=== PATIENT | female | born 1955 | race Caucasian/White ===

== ENCOUNTER 2021-06-11 08:27 | Outpatient (CLI) | payer OTHER, SELFPAY ==
[2021-06-11 08:46] VITALS: BMI 31.6
[2021-06-11 08:50] VITALS: BP 120/77; PULSE 83; RESP 17; TEMP 36.8; O2SAT 91
[2021-06-11 10:00] VITALS: BP 125/77; PULSE 86; RESP 16; TEMP 36.8; O2SAT 92
[2021-06-11 10:59] VITALS: BP 130/83; PULSE 78; RESP 17; TEMP 36.8
== END 2021-06-11 08:28 | disposition home or self-care (01) ==
LOC: OPS 08:29
PROVIDERS: PCP Nurse Practitioner Family; Visit Provider Nurse Practitioner Family
DX: U07.1 COVID-19 (principal)
CPT/HCPCS: 96365

== ENCOUNTER 2025-03-14 20:21 | Emergency (ER) | payer MEDICARE, SELFPAY ==
--- NOTE | 2025-03-14 20:23 | ECG_ITS ---
[facility] 2025-[facility]14 Pat Name: Caridad Card Department: Room: Gender: Female Continuity Manager: : 1955 Requested By: Rachel Hunter Order Number: [id number] Cristal MD: Ashly Mclain M.D. Measurements Intervals [place] Rate: 122 P: 65 SD: 178 QRS: -28 QRSD: 84 T: 69 QT: 416 QTc: 594 Interpretive Statements SINUS TACHYCARDIA LOW QRS VOLTAGE [QRS DEFLECTION < 0.5/1.0 mV IN LIMB/CHEST LEADS] ANTEROSEPTAL MYOCARDIAL INFARCTION , OF INDETERMINATE AGE [40+ ms Q WAVE IN V1-V4] Compared to ECG 12/12/2014 06:00:38 Low QRS voltage now present ST (T wave) deviation no longer present Myocardial infarct finding still present Electronically Signed On 03-15-2025 13:49:35 CDT by Ashly Mclain M.D. [id number]
--- NOTE | 2025-03-14 20:23 | XRR_ITS ---
PROCEDURE INFORMATION: Exam: XR Chest Exam date and time: 03/14/2025 8:39 PM Age: 70 years old Clinical indication: Pain; Chest pressure; Additional info: Chest pain TECHNIQUE: Imaging protocol: Radiologic exam of the chest. Views: 1 view. COMPARISON: No relevant prior studies available. FINDINGS: Lungs: Left basilar airspace o opacity obscures the hemidiaphragm and left costophrenic angle. Central predominant interstitial opacification is present. Pleural spaces: See Lungs finding. Heart/Mediastinum: The heart is normal in size. Mediastinal contours are within normal limits. Vasculature: Atherosclerotic changes of the aorta are noted. Bones/joints: Chronic appearing right distal clavicle fracture deformity. Correlate with patient history/physical exam. XR/XR chest 1V portable [id number] IMPRESSION: Left basilar airspace opacification which may represent airspace disease or atelectasis secondary to a small left pleural effusion. Question of mild vascular congestion.
--- OUTSIDE RECORDS SUMMARY | 2025-03-14 20:25 | XMS_ITS | Encounter Summary ---
Author Organization [facility] Address [address] [place] [address] Care Team Providers Care Plant Chief Name Role Phone Candace Buitrago MD Primary Care Provider [phone] Encounter Details Date Type Department Care Team (Late st Contact Info) Description 04/05/2007 Outpatient Historical [facility] [address] [facility] [address] [place] [address] Aline Iniguez MD NO ADDRESS ON FILE Other Screening Mammogram (Primary Dx) Social History Tobacco Use Types Packs/Day Years Used Date Smoking Tobacco: Never Assessed Comments Unknown Sex and Gender Information Value Date Recorded Sex Assigned at Not on file 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
--- OUTSIDE RECORDS SUMMARY | 2025-03-14 20:25 | XMS_ITS | Encounter Summary ---
Author Organization [facility] Address [address] [place] [address] Care Team Providers Care Salesperson Books Name Role Phone Candace Buitrago MD Primary Care Provider [phone] Encounter Details Date Type Department Care Team (Latest Contact Info) Description 04/05/2007 Outpatient [facility] Breast Center [facility] [address] [place], [place] [address] Candace Buitrago MD [address] [place] [address] Other Screening Mammogram (Primary Dx) Social History Tobacco Use Types Packs/Day Years Used Date Smoking Tobacco: Never Assessed Comments Unknown Sex and Gender Information Value Date Recorded Sex Assigned at Not on file 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
--- OUTSIDE RECORDS SUMMARY | 2025-03-14 20:25 | XMS_ITS | Encounter Summary ---
Author Organization [facility] Address [address] [place] [address] Care Team Providers Care Cutter Aluminum Sheet Name Role Phone Candace Buitrago MD Primary Care Provider [phone] Encounter Details Date Type Department Care Team (Late st Contact Info) Description 06/18/2005 Outpatient Historical [facility] [address] [facility] [address] [place] [address] Aline Iniguez MD NO ADDRESS ON FILE SYMPTOMS IN BREAST NEC (Primary Dx) Social History Tobacco Use Types Packs/Day Years Used Date Smoking Tobacco: Never Assessed Comments Unknown Sex and Gender Information Value Date Recorded Sex Assigned at Not on file Legal Sex Female 6:33 AM RN ADMIT Gender Identity Not on file Sexual Orientation Not on file documented as of this encounter Plan of Treatment Not on file documented as of this encounter Visit Diagnoses Diagnosis Other sign and symptom in breast- Primary documented in this encounter Care Teams Cutter Aluminum Sheet Relationship Specialty Start Date End Date Candace Buitrago MD [address] [place] [address] PCP - General 04/27/06 documented as of this encounter
--- OUTSIDE RECORDS SUMMARY | 2025-03-14 20:25 | XMS_ITS | Encounter Summary ---
Author Organization [facility] Address [address] [place] [address] Care Team Providers Care Hand Finisher Name Role Phone Candace Buitrago MD Primary Care Provider [phone] Encounter Details Date Type Department Care Team (Late st Contact Info) Description 04/16/2005 Outpatient Historical [facility] Jackie James, DIRECTOR OF RADIOLOGY- [address] [place] [id number] Social History Tobacco Use Types Packs/Day Years Used Date Smoking Tobacco: Never Assessed Comments Unknown Sex and Gender Information Value Date Recorded Sex Assigned at Not on file 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
--- OUTSIDE RECORDS SUMMARY | 2025-03-14 20:25 | XMS_ITS | Encounter Summary ---
Author Organization [facility] Address [address] [place] [address] Care Team Providers Care Excel Expert Name Role Phone Candace Buitrago MD Primary Care Provider [phone] Encounter Details Date Type Department Care Team (Latest Contact Info) Description 04/17/2005 Outpatient [facility] Breast Center [facility] [address] [place], [place] [address] Candace Buitrago MD [address] [place] [id number] SCREENING MAMM-MAILG NEOPL NEC (Primary Dx) Social History Tobacco Use Types Packs/Day Years Used Date Smoking Tobacco: Never Assessed Comments Unknown Sex and Gender Information Value Date Recorded Sex Assigned at Not on file Legal Sex Female 6:33 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
--- OUTSIDE RECORDS SUMMARY | 2025-03-14 20:25 | XMS_ITS | Encounter Summary ---
Author Organization [facility] Address [address] [place] [address] Care Team Providers Care Shrub Planter Name Role Phone Candace Buitrago MD Primary Care Provider [phone] Encounter Details Date Type Department Care Team (Latest Contact Info) Description 11/23/2002 Outpatient [facility] Breast Center [facility] [address] [place], [place] [id number] Claudio Carlson MD NO ADDRESS ON FILE SCREENING MAMM-MALIG NEOPL-HI RISK (Primary Dx) Social History Tobacco Use Types Packs/Day Years Used Date Smoking Tobacco: Never Assessed Comments Unknown Sex and Gender Information Value Date Recorded Sex Assigned at Not on file 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
--- OUTSIDE RECORDS SUMMARY | 2025-03-14 20:25 | XMS_ITS | Encounter Summary ---
Author Organization [facility] Address [address] [place] [address] Care Team Providers Care Mosaicist Name Role Phone Candace Buitrago MD Primary Care Provider [phone] Encounter Details Date Type Department Care Team (Latest Contact Info) Description 04/09/2007 Outpatient Historical 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 Gender Identity Not on file Sexual Orientation Not on file documented as of this encounter Plan of Treatment Not on file documented as of this encounter Procedures Procedure Name Priority Date/Time Associated Diagnosis Comments XR DEXA BONE DENSITY AXIAL 1 OR MORE SITES Routine 04/09/2007 12:01 AM CDT documented in this encounter Results * XR DEXA BONE DENSITY AXIAL 1 OR MORE SITES (04/09/2007 12:01 AM CDT) Anatomical Region Laterality Modality Other 04/09/2007 12:0 1 AM CDT Narrative 04/09/2007 12:01 AM CDT 04/09/2007 Reason for Consultation: Surgical menopause on hormonal replacement therapy. She had a prior normal examination performed on 11/23/2002. Follow-up evaluation. Evaluate bone mineral density. DEXA EVALUATION OF THE LUMBAR SPINE AND RIGHT PROXIMAL FEMUR: BMD Young Adult Region g/cm2 % T L2-L4 1.244 104 0.4 L1-L4 1.213 103 0.3 Femoral neck 0.833 80 -1.5 Total hip 0.933 93 -0.6 The technical quality of this examination is good. Serial measurement #2. Evaluation of the lumbar spine again reveals normal bone mineral density and no evidence of significant segmental demineralization. The right proximal femur does show evidence of some progressive demineralization in the femoral neck. The neck has 20% less mineral than the mean projected for a young normal, age 20-40 with a T-score of -1.5 and a Z-score of -0.7. The other segments in the femur are normal. IMPRESSION: The bone mineral density of the lumbar spine remains within normal limits and shows no evidence of osteopenia or osteoporosis. The slight relative increase in absolute density is probably related to the development of some hypertrophic disease in the upper lumbar spine. 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 On the previous examination of 11/23/2002, the femoral neck showed evidence of mild involutional osteopenia with a T-score of -1.2. At the present time, she still does not have a significant increase in risk for a fragility fracture. Recommend conservative management and a follow-up examination in two years. cgf: Dictated By: Marco Marvin M.D. Electronically Signed By: Marco Marvin M.D. Date Signed: 04/11/07 Procedure Note 05/20/2009 04/09/2007 Reason for Consultation: Surgical menopause on hormonal replacement therapy. She had a priornormal examination performed on 11/23/2002. Follow-up evaluation. Evaluate bone mineral density. DEXA EVALUATION OF THE LUMBAR SPINE AND RIGHT PROXIMAL FEMUR: BMD Young Adult Region g/cm2 % T L2-L4 1.244 104 0.4 L1-L4 1.213 103 0.3 Femoral neck 0.833 80 -1.5Total hip 0.933 93 -0.6 The technical quality of this examination is good. Serial measurement #2. Evaluation of the lumbar spine again reveals normal bone mineral densityand no evidence of significant segmental demineralization. The right proximal femur does show evidenceof some progressive demineralization in the femoral neck. The neck has 20% less mineral thanthe mean projected for a young normal, age 20-40 with a T-score of -1.5 and a Z-score of -0.7. The othersegments in the femur are normal. IMPRESSION: The bone mineral density of the lumbar spine remains within normal limitsand shows no evidence of osteopenia or osteoporosis. The slight relative increase in absolutedensity is probably related to the development of some hypertrophic disease in the upper lumbar spine. Theright proximal femur does show evidence of some progressive demineralization and now the femoral neckfalls into the category of moderate involutional osteopenia. On the previous examination of11/23/2002, the femoral neck showed evidence of mild involutional osteopenia with a T-score of -1.2. At the present time, she still does not have a significant increase inrisk for a fragility fracture. Recommend conservative management and a follow-up examination in twoyears. cgf: Dictated By: Marco Marvin M.D. Electronically Signed By: Marco Marvin M.D. Date Signed: 04/11/07 us Historical Provider DIAGNOSTIC IMAGING ORDERABLE S Final Result documented in this encounter Visit Diagnoses Diagnosis Disorder of bone and cartilage, unspecified- Primary documented in this encounter Care Teams Mosaicist Relationship Specialty Start Date End Date Candace Buitrago MD [address] [place] [phone] PCP - General 04/27/06 documented as of this encounter
--- OUTSIDE RECORDS SUMMARY | 2025-03-14 20:25 | XMS_ITS | Encounter Summary ---
Author Organization [facility] Address [address] [place] [address] Care Team Providers Care Surface Supervisor Name Role Phone Candace Buitrago MD Primary Care Provider Encounter Details Date Type Department Care Team (Late st Contact Info) Description 04/07/2003 Outpatient Historical [facility] Dermatology- 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
--- OUTSIDE RECORDS SUMMARY | 2025-03-14 20:25 | XMS_ITS | Clinical Summary ---
Author Organization [facility] Address [address] [place] [address] Care Team Providers Care Decker Operator Name Role Phone Candace Buitrago MD Primary Care Provider [phone] Allergies Active Allergy Reactions Criticality Noted Date Comments Codeine Nausea and Vomiting Low 01/10/2011 Penicillins Swelling Low 01/10/2011 Medications aspirin (SANTANA) 81 mg Oral Tab Take 81 mg by mouth. Active conjugated estrogens (PREMARIN) 2.5 mg Oral Tab Take 2.5 mg by mouth daily. Active clopidogrel (PLAVIX) 75 mg Oral Tab Take 1 Tab by mouth daily. 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 Gender Identity Not on file Sexual Orientation Not on file Last Filed Vital Signs Vital Sign Reading Time Taken Comments Blood Pressure 124/74 02/10/2011 10:30 AM CDT Pulse 78 02/10/2011 10:30 AM CDT Temperature 36.2 C (97.2 F) 01/11/2011 5:44 AM CDT Respiratory Rate 18 01/11/2011 5:44 AM CDT Oxygen Saturation 96% 01/11/2011 5:44 AM CDT Inhaled Oxygen Concentration - - Weight 74.8 kg (165 lb) 02/10/2011 10:30 AM CDT Height 165.1 cm (5' 5 ) 02/10/2011 10:30 AM CDT Body Mass Index 27.46 02/10/2011 10:30 AM CDT Plan of Treatment Health Maintenance Due Date Last Done Comments DTAP/TDAP/TD VACCINES (1 - Tdap) 01/22/1976 COLORECTAL SCREENING 2002 Colorectal Cancer Screening 2002 FIT-DNA Q 3 years 2002 FIT/FOBT Q 1 year 2002 Flex Sig/CT Colonography Q 5 years 2002 PNEUMOCOCCAL VACCINE 50+ YEARS (1 of 1 - PCV) 01/22/20 07 ZOSTER VACCINE (1 of 2) 2007 BREAST CANCER SCREENING 04/05/2008 04/05/2007 OSTEOPOROSIS SCREENING 2022 04/09/2007 INFLUENZA VACCINE (#1) 2025 RSV VACCINE (60+ or ) (1 - 1-dose 75+ series) 01/22/2032 Medical Devices Implanted Type Area Complaints Coordinator Device Identifier Shelf Expiration Date Model / Serial / Lot Stent Icast Covered [id number] Implanted:Qty: 1 on 01/10/2011 at [facility] Stent N/A: Aorta [employer] 07/13/2013 [id number] / / [id number] Procedures Procedure Name Priority Date/Time Associated Diagnosis Comments XR DEXA BONE DENSITY AXIAL 1 OR MORE SITES Routine 04/09/2007 12:01 AM CDT from Last 3 Months or Most Recently Relevant to Health Maintenance Results * XR DEXA BONE DENSITY AXIAL [...] By: Marco Marvin M.D. Date Signed: 04/11/07 Historical Provider DIAGNOSTIC IMAGING ORDERABLE S Final Result from Last 3 Months or Most Recently Relevant to Health Maintenance Advance Directives For more information, please contact: [phone] * Full Code (Latest Code Status on File) Date Activated Date Inactivated Comments 01/11/2011 12:33 AM 01/11/2011 8:33 AM * Full Code Date Activated Date Inactivated Comments 01/10/2011 8:57 PM 01/11/2011 12:33 AM Care Teams Decker Operator Relationship Specialty Start Date End Date Candace Buitrago MD [address] [address] PCP - General 04/27/06
--- OUTSIDE RECORDS SUMMARY | 2025-03-14 20:25 | XMS_ITS | Clinical Summary ---
Author Organization [facility] Address [address] [facility] Attn: Epic Prelude ADT [place] [address] Care Team Providers Care Preparation Room Manager Name Role Phone Candace Buitrago MD Primary Care Provider [phone] Allergies Active Allergy Reactions Criticality Noted Date Comments Codeine Nausea and Vomiting Low 01/10/2011 Penicillins Swelling Low 01/10/2011 Active Problems Problem Noted Date Diagnosed Date Blue toes 01/10/2011 PVD (peripheral vascular disease) with claudicat ion 01/10/2011 S/P insertion of iliac artery stent 01/10/2011 H/O: hysterectomy 01/10/2011 Social History Tobacco Use Types Packs/Day Years Used Date Smoking Tobacco: Every Day Cigarettes Alcohol Use Standard Drinks/Week Comments No 0 (1 standard drink = 0.6 oz pur e alcohol) Comments Unknown Sex and Gender Information Value Date Recorded Sex Assigned at Not on file Legal Sex Female 5:55 AM 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 Gender Identity Not on file Sexual Orientation Not on file Plan of Treatment Health Maintenance Due Date Last Done Comments DTAP/TDAP/TD VACCINES (1 - Tdap) 01/22/1976 BREAST CANCER SCREENING 1997 COLORECTAL SCREENING 2002 Colorectal Cancer Screening 2002 FIT-DNA Q 3 years 2002 FIT/FOBT Q 1 year 2002 Flex Sig/CT Colonography Q 5 years 2002 PNEUMOCOCCAL VACCINE 50+ YEARS (1 of 1 - PCV) 01/22/20 07 ZOSTER VACCINE (1 of 2) 2007 OSTEOPOROSIS SCREENING 2022 04/09/2007 INFLUENZA VACCINE (#1) 2025 RSV VACCINE (60+ or ) (1 - 1-dose 75+ series) 01/22/2032 Medical Devices Implanted Type Area Avionics Systems Integration Specialist Device Identifier Shelf Expiration Date Model / Serial / Lot Stent Icast Covered [id number] Implanted:Qty: 1 on 01/10/2011 Stent N/A: Aorta [employer] 07/13/2013 [id number] / / [id number] Care Teams Preparation Room Manager Relationship Specialty Start Date End Date Candace Buitrago MD [address] [place] [address] PCP - General 04/27/06
--- OUTSIDE RECORDS SUMMARY | 2025-03-14 20:25 | XMS_ITS | Encounter Summary ---
Author Organization [facility] Address [address] [place] [address] Care Team Providers Care Knitter Mechanic Name Role Phone Candace Buitrago MD Primary Care Provider [phone] Encounter Details Date Type Department Care Team (Late st Contact Info) Description 04/27/2006 Outpatient [facility] [address] [facility] [address] [place] [address] Aline Iniguez MD NO ADDRESS ON FILE Other Screening Mammogram (Primary Dx) Social History Tobacco Use Types Packs/Day Years Used Date Smoking Tobacco: Never Assessed Comments Unknown Sex and Gender Information Value Date Recorded Sex Assigned at Not on file 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
--- OUTSIDE RECORDS SUMMARY | 2025-03-14 20:25 | XMS_ITS | Encounter Summary ---
Author Organization [facility] Address [address] [place] [address] Care Team Providers Care Rx Specialist Name Role Phone Candace Buitrago MD Primary Care Provider [phone] Encounter Details Date Type Department Care Team (Latest Contact Info) Description 04/27/2006 Outpatient [facility] Breast Center [facility] [address] [place], [place] [address] Candace Buitrago MD [address] [place] [address] Other Screening Mammogram (Primary Dx) Social History Tobacco Use Types Packs/Day Years Used Date Smoking Tobacco: Never Assessed Comments Unknown Sex and Gender Information Value Date Recorded Sex Assigned at Not on file Legal 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
--- OUTSIDE RECORDS SUMMARY | 2025-03-14 20:25 | XMS_ITS | Encounter Summary ---
Author Organization [facility] Address [address] [place] [address] Care Team Providers Care Wet Milling Wheel Operator Name Role Phone Candace Buitrago MD Primary Care Provider [phone] Encounter Details Date Type Department Care Team (Late st Contact Info) Description 03/24/2003 Outpatient Historical [facility] Dermatology- 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
--- OUTSIDE RECORDS SUMMARY | 2025-03-14 20:25 | XMS_ITS | Encounter Summary ---
Author Organization [facility] Address [address] [place] [address] Care Team Providers Care Clay House Worker Name Role Phone Candace Buitrago MD Primary Care Provider [phone] Encounter Details Date Type Department Care Team (Latest Contact Info) Description 11/23/2002 Outpatient Historical [facility] [address] [place] [address] Claudio Carlson MD NO ADDRESS ON FILE SCREENING FOR OSTEOPOROSIS (Primary Dx) Social History Tobacco Use Types Packs/Day Years Used Date Smoking Tobacco: Never Assessed Comments Unknown Sex and Gender Information Value Date Recorded Sex Assigned at Not on file 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
--- OUTSIDE RECORDS SUMMARY | 2025-03-14 20:25 | XMS_ITS | Encounter Summary ---
Author Organization [facility] Address [address] [place] [address] Care Team Providers Care Manager Part Name Role Phone Candace Buitrago MD Primary Care Provider [phone] Encounter Details Date Type Department Care Team (Latest Contact Info) Description 05/04/2003 Outpatient Historical 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
--- OUTSIDE RECORDS SUMMARY | 2025-03-14 20:25 | XMS_ITS | Encounter Summary ---
Author Organization [facility] Address [address] [place] [place] [address] Care Team Providers Care Patent Litigation Associate Name Role Phone Candace Buitrago MD Primary Care Provider [phone] Encounter Details Date Type Department Care Team (Latest Contact Info) Description 06/18/2005 Outpatient Historical [facility] Candace Buitrago MD [address] [place] [address] UNSP ABNORMAL MAMMOGRAM (Primary Dx) Social History Tobacco Use Types Packs/Day Years Used Date Smoking Tobacco: Never Assessed Comments Unknown Sex and Gender Information Value Date Recorded Sex Assigned at Not on file 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
--- OUTSIDE RECORDS SUMMARY | 2025-03-14 20:25 | XMS_ITS | Encounter Summary ---
Author Organization [facility] Address [address] [place] [address] Care Team Providers Care Computerized Machine Fabric Cutter Name Role Phone Candace Buitrago MD Primary Care Provider [phone] Encounter Details Date Type Department Care Team (Late st Contact Info) Description 04/05/2007 Outpatient Historical [facility] Candace Buitrago MD [address] [address] Social History Tobacco Use Types Packs/Day Years Used Date Smoking Tobacco: Never Assessed Comments Unknown Sex and Gender Information Value Date Recorded Sex Assigned at Not on file 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
--- OUTSIDE RECORDS SUMMARY | 2025-03-14 20:25 | XMS_ITS | Encounter Summary ---
Author Organization [facility] Address [address] [place] [address] Care Team Providers Care Railroad Carman Name Role Phone Candace Buitrago MD Primary Care Provider [phone] Encounter Details Date Type Department Care Team (Latest Contact Info) Description 11/23/2002 Outpatient Historical [facility] [address] [address] Margarito Miller MD NO ADDRESS ON FILE SCREENING MAMM-MAILG NEOPL-OTHER (Primary Dx) Social History Tobacco Use Types Packs/Day Years Used Date Smoking Tobacco: Never Assessed Comments Unknown Sex and Gender Information Value Date Recorded Sex Assigned at Not on file 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
--- OUTSIDE RECORDS SUMMARY | 2025-03-14 20:25 | XMS_ITS | Encounter Summary ---
Author Organization [facility] Address [address] [place] [address] Care Team Providers Care Multilith Operator Name Role Phone Candace Buitrago MD Primary Care Provider [phone] Encounter Details Date Type Department Care Team (Latest Contact Info) Description 04/17/2005 Outpatient Historical [facility] [address] [address] Margarito Miller MD NO ADDRESS ON FILE SCREENING MAMM-MAILG NEOPL NEC (Primary Dx) Social History Tobacco Use Types Packs/Day Years Used Date Smoking Tobacco: Never Assessed Comments Unknown Sex and Gender Information Value Date Recorded Sex Assigned at Not on file 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
--- OUTSIDE RECORDS SUMMARY | 2025-03-14 20:25 | XMS_ITS | Encounter Summary ---
Author Organization [facility] Address [address] [place] [address] Care Team Providers Care Performance Improvement Analyst Name Role Phone Candace Buitrago MD Primary Care Provider [phone] Encounter Details Date Type Department Care Team (Late st Contact Info) Description 03/31/2003 Outpatient Historical [facility] Dermatology- 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
[2025-03-14 20:29] VITALS: BP 120/71; PULSE 127; RESP 18; TEMP 36.7; O2SAT 92; BMI 32.8
[2025-03-14 21:18] LABS: Hematocrit 44.8 % (36-47); Hemoglobin 14.80 g/dL (11.27-16.99); Mean Corpuscular HGB Conc 33.0 g/dL (30-55); Mean Corpuscular Hemoglobin 29.4 pg (27-33); Mean Corpuscular Volume 89.1 fl (85-98); Nucleated Red Blood Cells % 0 %; Platelet Count 292 10^3/cmm (157-399); Red Blood Count 5.03 10^6/uL (3.85-5.65); White Blood Count 8.23 10^3/uL (3.29-11.43)
[2025-03-14 21:38] LABS: Lactic Sepsis W/Reflex 2.9 mmol/L (0.5-2.2)
[2025-03-14 21:41] LABS: Troponin(5th) Baseline 7 ng/L (0-10)
[2025-03-14 21:52] LABS: Alanine Aminotransferase 25 U/L (0-33); Albumin Level 4.5 g/dL (3.5-5.2); Alkaline Phosphatase 79 U/L (35-105); Anion Gap 20.2 (5-19); Aspartate Amino Transferase 19 U/L (0-32); Blood Urea Nitrogen 15 mg/dL (8-23); Calcium 9.3 mg/dL (8.5-10.5); Carbon Dioxide 25 mmol/L (22-29); Chloride 101 mmol/L (98-107); Creatinine Clr Calc Pharmacy 74.3147; Globulin 2.5 g/dL (1.3-4.6); Glucose 184 mg/dL (65-115); NT Pro B Type Natriuretic Pept 562 pg/mL (0-125); Osmolality Calculated 302 mOsm/kg (285-295); Potassium 3.2 mmol/L (3.5-5.1); Sodium 143 mmol/L (136-145); Total Protein 7.0 g/dL (6.6-8.7)
--- NOTE | 2025-03-14 21:58 | ED_ITS ---
HPI - Chest Pain 2 General: Chief Complaint: Chest Pain Stated Complaint: Chest pains, N/V Low grade temp Time Seen by Provider: 03/14/25 20:23 History of Present Illness: 70-year-old female with a history of cor onary artery disease status post stents 10 years ago, hyperlipidemia, obesity and no other known medical problems who presents emergency room with nausea and vomiting with pain between her shoulder blades that started about 2:30 AM. She says her recently had some nausea vomiting and diarrhea but he says he feels better now. She is a bit tachycardic on presentation. She is still on Plavix. She does state she has pressure in her chest but pain is mostly into her back. Said she had a low- grade fever at home. Temp is 98.1 here. No abdominal pain. No diarrhea. Related Data Previous Rx's ?Medication ?Instructions ?Recorded omeprazole 40 mg capsule,delayed 40 mg PO DAILY #30 ca ps 03/15/25 release ondansetron 8 mg disintegrating 8 mg PO Q6H #14 tabs 0 03/15/25 tablet promethazine 25 mg rectal 25 mg TN Q6H PRN nausea and 03/15/25 suppository vomiting #12 ea Allergies Allergy/AdvReac Type Severity Reaction Status Date / Time codeine Allergy ADR-Nausea Verified 03/14/25 20:41 Penicillins Allergy ALGY-Hives Verified 03/14/25 20:40 Sulfa (Sulfonamide Allergy ADR-Nausea Verified 03/14/25 20:41 Antibiotics) Review of Systems 2 Narrative: Constitutional symptoms: Negative except as documented in HPI. Skin symptoms: Negative except as documented in HPI. Eye symptoms: Negative except as documented in HPI. ENMT symptoms: Negative except as documented in HPI. Respiratory symptoms: Negative except as documented in HPI. Cardiovascular symptoms: Negative except as documented in HPI. Gastrointestinal symptoms: Negative except as documented in HPI. Genitourinary symptoms: Negative except as documented in HPI. Musculoskeletal symptoms: Negative except as documented in HPI. Neurologic symptoms: Negative except as documented in HPI. Psychiatric symptoms: Negative except as documented in HPI. Endocrine symptoms: Negative except as documented in HPI. Physical Exam 2 Narrative: EXAM NARRATIVE: General: Alert, no acute distress. Skin: Warm, dry. Head: Normocephalic, atraumatic. Neck: Supple, trachea midline. Eye: Extraocular movements are intact. Ears, nose, mouth and throat: Tacky oral mucosa Cardiovascular: Regular, tachycardic, normal peripheral perfusion. Respiratory: Lungs are clear to auscultation, respirations are non-labored, breath sounds are equal, Symmetrical chest wall expansion. Gastrointestinal: Soft, Nontender, Non distended Musculoskeletal: Normal ROM, no deformity. Neurological: Alert and oriented, No focal neurological deficit observed. Psychiatric: Cooperative, appropriate mood & affect. Course 2 Vital Signs: Vital signs: Vital Signs Temperature 98.1 F 03/14/25 20:29 Pulse Rate 101 H 03/14/25 23:46 Respiratory Rate 18 03/14/25 20:29 Blood Pressure 151/76 03/14/25 23:46 Pulse Oximetry 90 03/14/25 23:46 MDM - Chest Pain Medical Decision Making Medical decision making: Differential diagnosis for this patient with nausea and vomiting including but not limited to and based on the above HPI, review of systems and physical exam: Urinary tract infection. Appendicitis. Cholecystitis. Colitis. small bowel obstruction. crohn's flare. pancreatitis. gastritis. peptic ulcer. cyclic vomiting. Viral illness. Influenza. COVID. Orders placed to evaluate differential diagnosis based on the above differential, HPI and physical exam Differential diagnosis for patient with chest pain includes but is not limited to and based on the above HPI, review of systems and physical exam: Likely chest pain is related to her nausea and vomiting but also included in the differential: Pneumonia. unstable angina. angina. Acute coronary syndrome / [place]. Pulmonary embolism. Costochondritis / musculoskeletal. Pleurisy. Pericarditis. Esophageal spasm. Pancreatis. Cholecystitis. Orders placed to evaluate differential diagnosis based on the above differential, HPI and physical exam EKG: Sinus tachycardia, No ST-T changes, no ectopy, normal TN & QRS intervals, This was reviewed and interpreted by myself the ER physician Lab Review: Laboratory results were reviewed and interpreted by myself the emergency room physician. No leukocytosis. No anemia. No renal failure. Troponin is negative. CRP is elevated at 70. Liver enzymes are normal. Urinalysis is negative. Lipase is negative. Lactate is mildly elevated. I reviewed the patient's medical record. She has had no visits in the last 10 years. She did follow with cardiology here in the past. CT of the chest abdomen pelvis: Abnormal chest x-ray with concern for possible infiltrate so CT dad and she continue to have vomiting so CT to her abdomen to rule out any abnormalities. She does have some esophageal thickening that might indicate some esophagitis. 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 They recommended MRCP. This was reviewed and interpreted by myself the emergency room physician. I also reviewed the radiology report. Reexamination: Patient remained stable. No increased work of breathing. No altered mental status. No focal motor deficits. Patient finally resting after multiple doses of Dilaudid, Pepcid and Zofran. Assessment and plan: Gastroenteritis Nausea and vomiting Dehydration Noncardiac chest pain ? 2 L normal saline bolus. IV Zofran. IV Dilaudid. IV Pepcid. - Discharged home - Discussed plan with patient. Answered any questions. - Evaluation and treatment of this problem were appropriate in the emergency setting. Lab Data 03/14/25 21:04 03/14/25 21:04 Radiology Impressions Chest X-Ray 03/14/25 20:23 IMPRESSION: Left basilar airspace opacification which may represent airspace disease or atelectasis secondary to a small left pleural effusion. Question of mild vascular congestion. Chest/Abdomen/Pelvis CT 03/14/25 22:50 IMPRESSION: 1. Long segment circumferential esophageal wall thickening. Correlate for esophagitis. Consider direct visualization via endoscopy. 2. Mild cardiomegaly. 3. Severe coronary atherosclerosis of the LAD. 4. Chronic appearing distal right clavicular fracture deformity. Correlate with patient history/physical exam. IMPRESSION: 1. No acute intra-abdominal process to explain the patient's symptoms. 2. 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 Definitive characterization with MRCP can be obtained. 3. Sigmoid diverticulosis without evidence of acute diverticulitis. 4. Indeterminate central mesenteric fat stranding. In the absence of suggested vascular compromise/ischemic change, findings may be benign in nature. Differential diagnosis includes mesenteric panniculitis. Consider attention on follow-up imaging. COMMENTS: Consistent with the [employer]'s Incidental Findings Committee white paper (J Am Melvi Radiol 2018): Any incidental renal lesion less than 1 cm or classified as too small to characterize, or any incidental cystic renal lesion characterized as simple-appearing, is likely benign. No follow-up imaging is recommended for these lesions per consensus recommendations based on imaging criteria. Laboratory Results WBC 8.23 10^3/uL (3.29-11.43) 03/14/25 21:04 RBC 5.03 10^6/uL (3.85-5.65) 03/14/25 21:04 Hgb 14.80 g/dL (11.27-16.99) 03/14/25 21:04 Hct 44.8 % (36-47) 03/14/25 21:04 MCV 89.1 fl (85-98) 03/14/25 21:04 MCH 29.4 pg (27-33) 03/14/25: MCHC 33.0 g/dL (30-55) 03/14/25:04 RDW 12.3 % (12.1-15.1) 03/14/25:04 Plt Count 292 10^3/cmm (157-399) 03/14/25 21:04 MPV 9.0 fL (7.4-10.4) 03/14/25 21: Neut % (Auto) 88.8 % 03/14/25 21: Lymph % (Auto) 7.0 % 03/14/25: [place] % (Auto) 3.5 % 03/14/25: Eos % (Auto) 0.0 % 03/14/25: Baso % (Auto) 0.2 % 03/14/25: Neut # (Auto) 7.30 10^3/uL (1.8-7.7) 03/14/25: Lymph # (Auto) 0.6 10^3/uL (0.8-4.8) L 03/14/25:04 [place] # (Auto) 0.3 10^3/uL (0.2-0.9) 03/14/25: Eos # (Auto) 0.0 10^3/uL (0.0-0.8) 03/14/25: Baso # (Auto) 0.0 10^3/uL (0.0-0.1) 03/14/25:04 Nucleated RBC % (auto) 0 % 09/16/25 21:04 Nucleated RBCs # 0.0 /100WBC 03/14/25 21:04 Sodium 143 mmol/L (136-145) 03/14/25 21:04 Potassium 3.2 mmol/L (3.5-5.1) L 03/14/25 21:04 Chloride 101 mmol/L (98-107) 03/14/25 21:04 Carbon Dioxide 25 mmol/L (22-29) 03/14/25 21:04 Anion Gap 20.2 (5-19) H 03/14/25 21:04 BUN 15 mg/dL (8-23) 03/14/25 21:04 Creatinine 0.6 mg/dL (0.5-0.9) 03/14/25 21:04 GFR Calculation 99.4 mL/min (90-130) 03/14/25 21:04 Glucose 184 mg/dL (65-115) H 03/14/25 21:04 Calculated Osmolality 302 mOsm/kg (285-295) H 03/14/25 21:04 Lactic Acid 2.9 mmol/L (0.5-2.2) H 03/14/25 21:04 Lactic Acid (Sepsis) 2.8 mmol/L (0.5-2.2) H 03/15/25 00:00 Calcium 9.3 mg/dL (8.5-10.5) 03/14/25 21:04 Total Bilirubin 0.4 mg/dL (0.15-1.2) 03/14/25 21:04 AST 19 U/L (0-32) 03/14/25 21:04 ALT 25 U/L (0-33) 03/14/25 21:04 Alkaline Phosphatase 79 U/L (35-105) 03/14/25 21:04 Troponin T Baseline 7 ng/L (0-10) 03/14/25 21:04 Troponin T 120 Minute 8.46 ng/L (0-10) 03/15/25 00:00 Delta Troponin T 1.46 ABS# (0-10) 03/15/25 00:00 C-Reactive Protein 70.1 mg/L (0.0-4.9) H 03/14/25 21:04 NT-Pro-B Natriuret Pep 562 pg/mL (0-125) H 03/14/25 21:04 Total Protein 7.0 g/dL (6.6-8.7) 03/14/25 21:04 Albumin 4.5 g/dL (3.5-5.2) 03/14/25 21:04 Globulin 2.5 g/dL (1.3-4.6) 03/14/25 21:04 Lipase 9 U/L (13-60) L 03/15/25 00:00 Urine Color Dark yellow (Yellow) A 03/15/25 00:35 Urine Appearance Clear (CLEAR) 03/15/25 00:35 Urine pH 7.0 (5-7) 03/15/25 00:35 Ur Specific [place] 1.095 (1.005-1.030) H 03/15/25 00:35 Urine Protein Trace (Negative) A 03/15/25 00:35 Urine Glucose (UA) Negative (Normal) 03/15/25 00:35 Urine Ketones Negative (Negative) 03/15/25 00:35 Urine Blood Non-haemolysed trace (Negative) 03/15/25 00:35 Urine Nitrate Positive (Negative) A 03/15/25 00:35 Urine Bilirubin 1+ (Negative) H 03/15/25 00:35 Urine Urobilinogen 1.0 mg/dL (Negative) 03/15/25 00:35 Ur Leukocyte Esterase Negative (Negative) 03/15/25 00:35 Urine RBC 0-2 /hpf (0-2) 03/15/25 00:35 Urine WBC 0-5 /hpf (0-5) 03/15/25 00:35 Ur Squamous Epith Cells 0-5 /hpf (0-5) 03/15/25 00:35 Amorphous Sediment Not Reportable 03/15/25 00:35 Urine Bacteria None seen /hpf (NONE) 03/15/25 00:35 Hyaline Casts 0-4 /lpf H 03/15/25 00:35 Influenza A (PCR) Negative (Negative) 03/14/25 22:27 Influenza Type B (PCR) Negative (Negative) 03/14/25 22:27 RSV (PCR) Negative (Negative) 03/14/25 22:27 SARS-CoV-2 (PCR) Negative (Negative) 03/14/25 22:27 All radiology interpretation(s) finalized by discharge Discharge Plan Discharge Patient Disposition: Home Clinical Impression: Gastroenteritis, Dehydration, Non-cardiac chest pain, Esophagitis, Abnormal x- ray of pancreas Condition: Stable Prescriptions: New promethazine 25 mg suppository 25 mg TN Q6H PRN (Reason: nausea and vomiting) Qty: 12 0RF omeprazole 40 mg capsule,delayed release(DR/EC) 40 mg PO DAILY Qty: 30 0RF ondansetron 8 mg tablet,disintegrating 8 mg PO Q6H Qty: 14 0RF Rx Instructions: Take 1/2-1 tab every 6 hours as needed for nausea and vomiting Discharge Orders: Discharge ED (Routine); Ordered 03/15/25 Ordered By: Rachel Mohan Referrals: Jabier Todd MD [Physician, General Surgery] Referral Note: If you continue to have esophageal pain please call and schedule an appointment with Dr. Boyle for possible endoscopy. Willie Stevens FNP [Primary Care Provider, Orthopedics] Discharge Diet: Advance as tolerated Discharge Activity: Increase activity as tolerated Patient Instructions: Acute Nausea and Vomiting (ED), Opioid Safety, Pain Management, Patient Portal & Charleen Instructions Activity Restrictions/Additional Instructions: There was abnormality in your pancreas on CT scan. Radiology recommends an MRCP in the very near future. Your doctor will need to order this as an outpatient in the near future Thank you for choosing [facility] for your healthcare needs today. You have been screened and evaluated and felt safe for discharge. Health conditions do change or evolve sometimes and as such it is important that you follow up with your Primary Doctor to be re checked, 3-5 days is a general good time frame for follow up. You are always welcome to return to the ED for re assessment if your symptoms are worsening or you have new concerns Print Language: Malaysian Coding Level of Care Code ED Youth Liaison Officer for Myke Vaughan
[2025-03-14] MEDS: ondansetron 2 mg/ML SDV 2 mL 8 MG IVP (22:37)
--- NOTE | 2025-03-14 22:44 | ECG_ITS ---
[employer] Test Date: 2025-03-14 Pat Name: Caridad Card Department: Room: Gender: Female In Service Coordinator: : 1955 Requested By: Rachel Hunter Order Number: [id number] Cristal MD: Ashly Mclain M.D. Measurements Intervals [place] Rate: 112 P: 58 MS: 196 QRS: -47 QRSD: 77 T: 31 QT: 286 QTc: 392 Interpretive Statements SINUS TACHYCARDIA Possible left atrial enlargement LOW QRS VOLTAGE IN PRECORDIAL LEADS [QRS DEFLECTION < 1.0 mV IN CHEST LEADS] LEFT ANTERIOR FASCICULAR BLOCK [QRS AXIS <= -45, QR IN I, RS IN II] ANTEROSEPTAL MYOCARDIAL INFARCTION , OF INDETERMINATE AGE [40+ ms Q WAVE IN V1-V4] Compared to ECG 03/14/2025 20:34:41 Left anterior fascicular block now present Myocardial infarct finding still present Electronically Signed On 03-15-2025 13:57:05 CDT by Ashly Mclain M.D. [email or web address]
[2025-03-14 22:50] VITALS: PULSE 113; O2SAT 93
--- NOTE | 2025-03-14 22:50 | CTR_ITS ---
PROCEDURE INFORMATION: Exam: CT Chest With Contrast; Diagnostic Exam date and time: 03/14/2025 11:04 PM Age: 70 years old Clinical indication: Fever and nausea and vomiting; Angina; Prior surgery; Surgery date: 6+ months; Surgery type: Appendectomy, exploratory surgery of the abdomen, lump in breast removed; Additional info: Chest pain, vomiting TECHNIQUE: Imaging protocol: Diagnostic computed tomography of the chest with contrast. Radiation optimization: All CT scans at this facility use at least one of these dose optimization techniques: automated exposure control; mA and/or kV adjustment per patient size (includes targeted exams where dose is matched to clinical indication); or iterative reconstruction. Contrast material: OMNI 350; Contrast volume: 100 ml; Contrast route: INTRAVENOUS (IV); COMPARISON: CR (CHEST, ) 03/14/2025 8:39 PM RADIATION DOSE METRICS: Total DLP (mGy-cm): 652.22 FINDINGS: Lungs: Respiratory motion obscures evaluation of the imaged lung bases. No confluent consolidation. Pleural spaces: No pleural effusion. No pneumothorax is seen. Heart: The heart is mildly enlarged. No pericardial effusion. Coronary arteries: Severe atherosclerosis of the left anterior descending coronary artery (LAD) is noted. Esophagus: Long segment circumferential esophageal wall thickening is present. Lymph nodes: Unremarkable. No enlarged lymph nodes. Vasculature: Mild atherosclerotic changes of the thoracic aorta and its major branch vessels is noted. Bones/joints: Chronic appearing distal right clavicular fracture deformity. Correlate with patient history/physical exam. Degenerative joint and disc disease is seen in the imaged spine. Soft tissues: Unremarkable. PROCEDURE INFORMATION: Exam: CT Abdomen And Pelvis With Contrast Exam date and time: 03/14/2025 11:04 PM Age: 70 years old Clinical indication: Fever and nausea and vomiting; Angina; Prior surgery; Surgery date: 6+ months; Surgery type: Appendectomy, exploratory surgery of the abdomen, lump in breast removed; Additional info: Chest pain, vomiting TECHNIQUE: Imaging protocol: Computed tomography of the abdomen and pelvis with contrast. Radiation optimization: All CT scans at this facility use at least one of these dose optimization techniques: automated exposure control; mA and/or kV adjustment per patient size (includes targeted exams where dose is matched to clinical indication); or iterative reconstruction. Contrast material: OMNI 350; Contrast volume: 100 ml; Contrast route: INTRAVENOUS (IV); COMPARISON: CR (CHEST, ) 03/14/2025 8:39 PM RADIATION DOSE METRICS: Total DLP (mGy-cm): 652.22 FINDINGS: Diaphragm: A small hiatal hernia is present. Liver: Normal. No mass. Gallbladder and biliary ducts: Normal. No calcified stones. No ductal dilation. Pancreas: Subcentimeter hypoattenuating cystic lesions are seen in the pancreas, too small to characterize. No ductal dilatation is noted. Spleen: Normal. No splenomegaly. Adrenal glands: Normal. No mass. Kidneys and ureters: Simple right renal cysts are present (Bosniak 1). No follow-up required. 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 Sigmoid diverticular disease without evidence of acute inflammation is present. Appendix: The appendix is not clearly identified. No inflammation in the right lower quadrant is present to suggest acute appendicitis. Intraperitoneal space: Hazy central mesenteric fat stranding is present. Associated subcentimeter short axis central mesenteric lymph nodes are identified. Vasculature: Mild atherosclerosis of the aorta and its major branching vessels is noted. Postoperative changes from endovascular stent graft in the infrarenal aorta. Correlate with patient history. Lymph nodes: See Intraperitoneal space finding. Urinary bladder: Unremarkable as visualized. Reproductive: Unremarkable as visualized. Bones/joints: Degenerative joint and disc disease is seen in the imaged spine. Soft tissues: Unremarkable. CT/CT chest abdpel w/*[id number] IMPRESSION: 1. Long segment circumferential esophageal wall thickening. Correlate for esophagitis. Consider direct visualization via endoscopy. 2. Mild cardiomegaly. 3. Severe coronary atherosclerosis of the LAD. 4. Chronic appearing distal right clavicular fracture deformity. Correlate with patient history/physical exam. IMPRESSION: 1. No acute intra-abdominal process to explain the patient's symptoms. 2. 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 Definitive characterization with MRCP can be obtained. 3. Sigmoid diverticulosis without evidence of acute diverticulitis. 4. Indeterminate central mesenteric fat stranding. In the absence of suggested vascular compromise/ischemic change, findings may be benign in nature. Differential diagnosis includes mesenteric panniculitis. Consider attention on follow-up imaging. COMMENTS: Consistent with the [employer]'s Incidental Findings Committee white paper (J Am Melvi Radiol 2018): Any incidental renal lesion less than 1 cm or classified as too small to characterize, or any incidental cystic renal lesion characterized as simple-appearing, is likely benign. No follow-up imaging is recommended for these lesions per consensus recommendations based on imaging criteria.
[2025-03-14 22:54] VITALS: BP 155/78
[2025-03-14] MEDS: HYDROmorphone 0.5 MG/0.5 ML INJ 1 MG IVP (22:55)
[2025-03-14 22:58] LABS: Reflex Lactate Order REFLEX LACTIC ORDERD
[2025-03-14 23:24] LABS: Respiratory Syncytial Virus Ce NEGATIVE (Negative); SARS-CoV-2 PCR NEGATIVE (Negative)
[2025-03-14 23:46] VITALS: BP 151/76; PULSE 101; O2SAT 90
[2025-03-15] MEDS: HYDROmorphone 0.5 MG/0.5 ML INJ 1 MG IVP (00:15)
[2025-03-15 00:41] LABS: Troponin 5 2HR 8.46 ng/L (0-10); Troponin 5 2HR Delta 1.46 ABS# (0-10)
[2025-03-15 00:42] LABS: Lactic Acid level (Lactate) 2.8 mmol/L (0.5-2.2)
[2025-03-15 00:45] LABS: Glucose Urine UA Negative (Normal); Nitrate Urine Positive (Negative)
[2025-03-15 00:55] LABS: Lipase 9 U/L (13-60)
--- NOTE | 2025-03-15 01:26 | PC.NURSE ---
Pt is sleeping soundly at this time and Dr. Mohan approved waiting for GI cocktail until she woke.
[2025-03-15 01:40] LABS: Specific Gravity, Urine 1.095 (1.005-1.030); UA Slide Review UA Slide Review Perf
[2025-03-15] MEDS: lidocaine 2% viscous 15 ML, aluminum-mag hydrox-simethicon 30 ML, sucralfate oral liq 1 GM PO ×2 (01:55→02:45)
[2025-03-15 02:56] VITALS: BP 118/73; PULSE 89; RESP 18; O2SAT 93
== END 2025-03-15 03:00 | disposition home or self-care (01) ==
PROVIDERS: Emergency Provider Emergency Medicine; PCP Nurse Practitioner Family
DX: K52.9 Noninfective gastroenteritis and colitis, unspecified (principal); E86.0 Dehydration; R07.89 Other chest pain; K20.90 Esophagitis, unspecified without bleeding; R93.89 Abnormal findings on diagnostic imaging of other specified body structures; Z11.52 Encounter for screening for COVID-19
CPT/HCPCS: 36415; 71045; 71260; 74177; 80053; 81001; 83605; 83690; 83880; 84484; 85025; 86140; 87040; 87637; 93005; 96361; 96374; 96375; 99285; J1171; J2405; J3490; J7030; J9999